=== PATIENT | male | born 1950 | race Caucasian/White ===

== ENCOUNTER 2022-05-29 12:02 | Emergency (ER) | payer BC, OTHER ==
[~2022-05-29] VITALS: Ht 165.1 cm; Wt 85.3 kg
[2022-05-29 12:17] VITALS: BP 130/75
[2022-05-29] MEDS ORDERED: LID5T TP (14:15)
[2022-05-29] MEDS ORDERED: METH-1681 PO (14:15)
[2022-05-29] MEDS ORDERED: NAPR-1003 PO (14:15)
--- NOTE | 2022-05-29 15:00 | NUR ---
72/M PRESENTS TO ED WITH C/O LEFT HIP PAIN S/P SLIP AND FALL ON WEDNESDAY, DENIES HEAD OR NECK INJURY. REPORTS TAKING IBUPROFEN WITH NO RELIEF, PATIENT AMBULATORY WITH ASSISTANCE OF PERSONAL CRUTCHES.
[2022-05-29] MEDS ORDERED: ONDA-188 PO (15:19)
[2022-05-29] MEDS ORDERED: TRAM50TA1 PO (15:19)
[2022-05-29 15:34] VITALS: BP 145/81
--- NOTE | 2022-05-29 15:35 | NUR ---
Patient discharged with v/s stable. Written and verbal after care instructions ABOUT ACUTE BACK PAIN given and explained. Patient alert, oriented and verbalized understanding of instructions. Ambulatory with steady gait. All questions addressed prior to discharge. ID band removed. Patient advised to follow up with PMD. Rx of LIDODERM PATCH, NAPROXEN, ZOFRAN AND ULTRAM given. Patient educated on indication of medication including possible reaction and side effects. Opportunity to ask questions provided and answered.
== END 2022-05-29 15:35 | disposition home or self-care (01) ==
LOC: MED 12:02
DX: S39.012A Strain of muscle, fascia and tendon of lower back, initial encounter (principal); E11.9 Type 2 diabetes mellitus without complications; I10 Essential (primary) hypertension; E07.9 Disorder of thyroid, unspecified; Z79.899 Other long term (current) drug therapy; W19.XXXA Unspecified fall, initial encounter; Y93.89 Activity, other specified; Y92.89 Other specified places as the place of occurrence of the external cause; Y99.8 Other external cause status
CPT/HCPCS: 73502; 99283